=== PATIENT | male | born 1985 | race Caucasian/White ===

== ENCOUNTER → 2023-09-26 09:37 | Outpatient (BNVA) | payer MEDICAID, SELFPAY | PROVIDERS: Family Provider Nurse Practitioner; PCP Nurse Practitioner; Visit Provider Family Medicine | DX: E66.01 Morbid (severe) obesity due to excess calories (principal); H91.92 Unspecified hearing loss, left ear; H93.19 Tinnitus, unspecified ear; G47.30 Sleep apnea, unspecified; R06.83 Snoring; Z23 Encounter for immunization; K21.9 Gastro-esophageal reflux disease without esophagitis; T78.40XA Allergy, unspecified, initial encounter; B37.2 Candidiasis of skin and nail; M54.9 Dorsalgia, unspecified; G89.29 Other chronic pain; R03.0 Elevated blood-pressure reading, without diagnosis of hypertension; L30.9 Dermatitis, unspecified | CPT/HCPCS: 80053; 80061; 83036; 84439; 84443; 85025 ==

== ENCOUNTER 2023-11-26 12:00 | Outpatient (CLI) | payer MEDICAID, SELFPAY | END 2023-11-26 12:01 | disposition home or self-care (01) | LOC: SLEEP 11-27 14:16 | PROVIDERS: Family Provider Nurse Practitioner; PCP Nurse Practitioner; Visit Provider Family Medicine | DX: G47.30 Sleep apnea, unspecified (principal); R06.83 Snoring | CPT/HCPCS: G0399 ==